=== PATIENT | female | born 1970 ===

== ENCOUNTER 2017-02-26 15:30 | Emergency (ER) | payer OTHER ==
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
--- NOTE | 2017-02-26 18:03 | RAD ---
PROCEDURE: Left Femur Radiographs. HISTORY: lateral leg pain COMPARISON: None. TECHNIQUE: AP and Lateral Radiographs of the left femur. FINDINGS: FEMUR: Normal. No fracture. SOFT TISSUES: Normal. OTHER FINDINGS: None. IMPRESSION: Unremarkable radiographs of the left femur.
[2017-02-26 18:31] VITALS: BP 115/78; PULSE 74; RESP 14; TEMP 97.5; O2SAT 96
[2017-02-26] MEDS ORDERED: Apap-Butalbital-Caffeine 325-50-40mg Tab PO STA (18:38)
[2017-02-26] MEDS ORDERED: Apap-Butalbital-Caffeine 325-50-40mg Tab ONE (18:44)
== END 2017-02-26 19:01 | disposition home or self-care (01) ==
LOC: C.ER 15:30
DX: S80.12XA Contusion of left lower leg, initial encounter (principal); S40.022A Contusion of left upper arm, initial encounter; V49.9XXA Car occupant (driver) (passenger) injured in unspecified traffic accident, initial encounter
CPT/HCPCS: 73030; 73060; 73090; 73552; 73610; 96372; 99285; J1885